=== PATIENT | female | born 1965 | race Caucasian/White ===

== ENCOUNTER 2017-12-23 16:44 | Emergency (ER) | payer OTHER ==
--- NOTE | 2017-12-23 17:02 | PDOC ---
Rapid Medical Evaluation Time Seen by Provider: 12/23/17 17:00 Medical Evaluation: 12/23/17 17:00 I have performed a brief in-person evaluation of this patient. The patient presents with a chief complaint of: R flank pain x 1 week. Dx w/ "complicated cyst" to R kidney on US earlier this year. Sent in for CT a/p w/ contrast by Dr Barr Pertinent physical exam findings:unremarkable I have ordered the following:labs/ua The patient will proceed to the ED for further evaluation. Discharge Disposition - Diagnosis Right flank pain - Referrals - Patient Instructions - Post Discharge Activity
[2017-12-23 17:12] VITALS: BP 148/88; PULSE 73; TEMP 98.4; BMI 30.7
[2017-12-23 17:19] LABS: BASO % 0.4 % (0-2.0); EOS % 1.5 % (0-4.5); HEMATOCRIT 40.3 % (32.4-45.2); HEMOGLOBIN 13.7 GM/dL (10.7-15.3); LYMPH % 49.2 % (8-40); MCH 31.8 pg (25.7-33.7); MEAN CELL VOLUME 93.7 fl (80-96); MEAN PLT VOLUME 8.5 fl (7.5-11.1); MONO % 6.4 % (3.8-10.2); NEUT % 42.5 % (42.8-82.8); PLATELET COUNT 180 K/MM3 (134-434); RDW 13.4 % (11.6-15.6); WHITE BLOOD COUNT 7.7 K/mm3 (4.0-10.0)
--- NOTE | 2017-12-23 17:41 | PDOC ---
Attending Attestation - Resident Resident Name: NehalKel - ED Attending Attestation I have performed the following: I have examined & evaluated the patient, The case was reviewed & discussed with the resident, I agree w/resident's findings & plan, Exceptions are as noted - Physicial Exam PE: 12/23/17 18:23 Patient is awake and alert, obese, afebrile, in no distress Normocephalic, atraumatic PERRLA, EOMI, no scleral icterus CTA RRR Soft, nondistended, mild right upper quadrant tenderness to deep palpation, Flynn's is negative; bowel sounds are present in all 4 quadrants No CVA tenderness bilaterally - Medical Decision Making 12/23/17 18:25 52-year-old obese female with history of complex renal cysts presents via with several weeks of intermittent right upper quadrant pain without associated nausea/vomiting/diarrhea/melena/bright red blood per rectum. Differential diagnosis includes cholelithiasis versus hepatic pathology versus nephrolithiasis versus renal cysts. We'll obtain CBC/CMP/CT of the abdomen and pelvis. Will reassess. <Tee Chavis - Last Filed: 12/23/17 18:23> - HPI HPI: 12/23/17 19:18 The patient is a 52 year old female, with a significant past medical history of right sided kidney cyst, who presents to the emergency department complaining of right sided flank pain for the past month. She reports that her pain ranges from mild to moderate, without radiation or modifying factors. She notes that she saw Dr. Momo Mahajan, who expressed concern of possible obstructing kidney stone. The patient denies chest pain, shortness of breath, headache or dizziness. Denies fever, chills, nausea, vomiting, diarrhea and constipation. Denies dysuria, frequency, urgency and hematuria. LMP: 2 Years ago Allergies: None Past surgical history: None reported Social History: No alcohol, tobacco or drug use reported <Piter Camilo - Last Filed: 12/23/17 19:18>
[2017-12-23 17:49] LABS: ALBUMIN 3.8 g/dl (3.4-5.0); ANION GAP 7 (8-16); BLOOD UREA NITROGEN 12 mg/dL (7-18); CHLORIDE 105 mmol/L (98-107); CO2 28 mmol/L (21-32); CREATININE 0.7 mg/dL (0.55-1.02); GLUCOSE,RANDOM 98 mg/dL (74-106); SGOT/AST 102 U/L (15-37); SGPT/ALT 122 U/L (12-78); SODIUM 140 mmol/L (136-145)
[2017-12-23 17:51] LABS: ALK PHOS 128 U/L (45-117); BILIRUBIN,TOTAL 0.3 mg/dL (0.2-1.0)
[2017-12-23 18:16] LABS: URINE APPEARANCE CLEAR; URINE BILIRUBIN NEGATIVE (<2.0 mg/dL); URINE COLOR STRAW; URINE GLUCOSE (UA) NEGATIVE (NEGATIVE); URINE KETONE NEGATIVE (NEGATIVE); URINE LEUK ESTERASE NEGATIVE (NEGATIVE); URINE NITRITE NEGATIVE (NEGATIVE); URINE PROTEIN NEGATIVE (NEGATIVE); URINE UROBILINOGEN NEGATIVE mg/dL (0.2-1.0)
--- NOTE | 2017-12-23 18:19 | PDOC ---
History of Present Illness - General History Source: Patient Exam Limitations: No Limitations <Piter Camilo - Last Filed: 12/23/17 18:54> - General History Source: Patient Exam Limitations: No Limitations - History of Present Illness Initial Comments: 12/23/17 18:14 Patient is a 52F with history of right kidney cyst here today complaining of 1 month of intermittent right sided flank pain. Patient was sent for evaluation from Dr Barr's office for concern of obstructing kidney stone. Patient denies pain with urination, nausea, vomiting, fevers and chills. Patient states that her pain is intermittent and colicky. Last bowel movement today. Last menstrual period two years ago. Patient states that ultrasound of her right kidney showed a cyst. Pain has now resolved. <Kel Calvert - Last Filed: 12/23/17 19:09> - General Chief Complaint: Pain, Acute Stated Complaint: PCP SENT Time Seen by Provider: 12/23/17 17:00 Past History <Piter Camilo - Last Filed: 12/23/17 18:54> - Past Medical History COPD: No Other medical history: right renal cyst - Immunization History Immunization Up to Date: Yes - Suicide/Smoking/Psychosocial Hx Smoking History: Never smoked <Kel Calvert - Last Filed: 12/23/17 19:09> - Past Medical History Allergies/Adverse Reactions: Allergies Allergy/AdvReac Type Severity Reaction Status Date / Time No Known Allergies Allergy Verified 12/23/17 17:01 Review of Systems - Review of Systems Comments:: 12/23/17 18:19 GENERAL/CONSTITUTIONAL: No fever or chills. No weakness. HEAD, EYES, EARS, NOSE AND THROAT: No change in vision. No sore throat. CARDIOVASCULAR: No chest pain or shortness of breath RESPIRATORY: No cough, wheezing, or hemoptysis. GASTROINTESTINAL: No nausea, vomiting, diarrhea or constipation. GENITOURINARY: No dysuria, frequency, or change in urination. MUSCULOSKELETAL: No joint or muscle swelling or pain. No neck or back pain. SKIN: No rash NEUROLOGIC: No headache, vertigo, loss of consciousness, or change in strength/ sensation. ENDOCRINE: No increased thirst. No abnormal weight change HEMATOLOGIC/LYMPHATIC: No anemia, easy bleeding, or history of blood clots. ALLERGIC/IMMUNOLOGIC: No hives or skin allergy. <Kel Calvert - Last Filed: 12/23/17 19:09> *Physical Exam - Vital Signs Last Vital Signs Temp Pulse Resp BP Pulse Ox 98.4 F 73 18 148/88 100 12/23/17 17:01 12/23/17 17:01 12/23/17 17:01 12/23/17 17:01 12/23/17 17:01 <Piter Camilo - Last Filed: 12/23/17 18:54> - Vital Signs Last Vital Signs Temp Pulse Resp BP Pulse Ox 98.4 F 73 18 148/88 100 12/23/17 17:01 12/23/17 17:01 12/23/17 17:01 12/23/17 17:01 12/23/17 17:01 - Physical Exam Comments: 12/23/17 18:19 GENERAL: Awake, alert, and fully oriented, in no acute distress. Sitting up in bed. HEAD: No signs of trauma, normocephalic, atraumatic EYES: PERRLA, EOMI, sclera anicteric, conjunctiva clear ENT: Auricles normal inspection, hearing grossly normal, nares patent, oropharynx clear without exudates. Moist mucosa NECK: Normal ROM, supple, no lymphadenopathy, JVD, or masses LUNGS: No distress, speaks full sentences, clear to auscultation bilaterally HEART: Regular rate and rhythm, normal S1 and S2, no murmurs, rubs or gallops, peripheral pulses normal and equal bilaterally. ABDOMEN: Soft, minimally tender in RUQ, normoactive bowel sounds. No guarding, no rebound. No masses EXTREMITIES: Normal inspection, Normal range of motion, no edema. No clubbing or cyanosis. NEUROLOGICAL: Cranial nerves II through XII grossly intact. Normal speech, normal gait, no focal sensorimotor deficits SKIN: Warm, Dry, normal turgor, no rashes or lesions noted. <Kel Calvert - Last Filed: 12/23/17 19:09> ED Treatment Course - LABORATORY CBC & Chemistry Diagram: 12/23/17 17:10 12/23/17 17:10 - ADDITIONAL ORDERS Additional order review: Laboratory Results 12/23/17 12/23/17 12/23/17 17:28 17:20 17:10 Sodium 140 Potassium 4.0 Chloride 105 Carbon Dioxide 28 Anion Gap 7 L BUN 12 Creatinine 0.7 Creat Clearance w eGFR > 60 Random Glucose 98 Calcium 9.0 Total Bilirubin 0.3 AST 102 H ALT 122 H Alkaline Phosphatase 128 H Total Protein 9.0 H Albumin 3.8 Lipase 151 Urine Color Straw Urine Appearance Clear Urine pH 6.0 Ur Specific Newcomb 1.004 Urine Protein Negative Urine Glucose (UA) Negative Urine Ketones Negative Urine Blood Negative Urine Nitrite Negative Urine Bilirubin Negative Urine Urobilinogen Negative Ur Leukocyte Esterase Negative 12/23/17 17:10 RBC 4.30 MCV 93.7 MCHC 34.0 RDW 13.4 MPV 8.5 Neutrophils % 42.5 L Lymphocytes % 49.2 H Monocytes % 6.4 Eosinophils % 1.5 Basophils % 0.4 <Piter Camilo - Last Filed: 12/23/17 18:54> - LABORATORY CBC & Chemistry Diagram: 12/23/17 17:10 12/23/17 17:10 - ADDITIONAL ORDERS Additional order review: Laboratory Results 12/23/17 12/23/17 17:28 17:10 Sodium 140 Potassium 4.0 Chloride 105 Carbon Dioxide 28 Anion Gap 7 L BUN 12 Creatinine 0.7 Creat Clearance w eGFR > 60 Random Glucose 98 Calcium 9.0 Total Bilirubin 0.3 AST 102 H ALT 122 H Alkaline Phosphatase 128 H Total Protein 9.0 H Albumin 3.8 Lipase 151 12/23/17 17:10 RBC 4.30 MCV 93.7 MCHC 34.0 RDW 13.4 MPV 8.5 Neutrophils % 42.5 L Lymphocytes % 49.2 H Monocytes % 6.4 Eosinophils % 1.5 Basophils % 0.4 - RADIOLOGY Radiology Studies Ordered: Category Date Time Status SPIRAL- RENAL-STONE CT [CT] Stat CT Scan 12/23/17 17:44 Ordered <Kel Calvert - Last Filed: 12/23/17 19:09> Medical Decision Making - Medical Decision Making 12/23/17 18:20 Patient is 52F with history of renal cyst here today complaining of RUQ/right flank pain. Vital signs normal and stable. Bedside ultrasound performed shows no cholelithiasis, thickened gallbladder wall, pericholecystic fluid or sonographic meier sign. Will do abdominal labs and spiral CT to evaluate for kidney stones. Patient currently reports no pain. 12/23/17 18:22 Laboratory Tests 12/23/17 12/23/17 17:10 17:10 WBC 7.7 Hgb 13.7 Plt Count 180 AST 102 H ALT 122 H Alkaline Phosphatase 128 H CBC normal. CMP shows mildly elevated liver enzymes, total bili normal. Do not believe patient has obstructive biliary disease. Pending UA, CT. 12/23/17 19:00 CT normal, UA negative. Will discharge home with return precautions. Dr Sheffield asked for hepatitis panel for patient. Will draw, Dr Sheffield stated they would follow up on results. <Kel Calvert - Last Filed: 12/23/17 19:09> *DC/Admit/Observation/Transfer <Piter Camilo - Last Filed: 12/23/17 18:54> - Discharge Dispostion Decision to Admit order: No <Kel Calvert - Last Filed: 12/23/17 19:09> Diagnosis at time of Disposition: Right flank pain - Discharge Dispostion Disposition: HOME Condition at time of disposition: Good - Patient Instructions Printed Discharge Instructions: DI for Flank Pain Additional Instructions: Please return if you have any new, worsening or concerning symptoms. Please see your primary care physician in the next week to follow up on your visit. In the course of your ED stay, it was found that you had mildly elevated liver enzymes. Please follow up with this with your primary care physician.
[2017-12-28 14:16] LABS: HEP.C VIRUS AB 0.2 s/co ratio (0.0-0.9)
== END 2017-12-23 19:43 | disposition home or self-care (01) ==
LOC: JER 16:44
DX: R10.31 Right lower quadrant pain (principal); Z87.442 Personal history of urinary calculi
CPT/HCPCS: 36415; 74176; 80053; 80074; 81003; 83690; 85025; 99282-25